=== PATIENT | female | born 1955 | race Caucasian/White ===

== ENCOUNTER 2018-08-27 11:48 | Emergency (ER) | payer BC ==
--- OUTSIDE RECORDS SUMMARY | 2018-08-27 12:04 | XMS REPORT | Continuity of Care Document ---
:1955 External Reference #:[id number] Author Name Fenrando Veras MD Address [address] [place] [address] Care Team Providers Name Role Phone Valente Sims Care Team Information Transfer Agent Unavailable Valente Sims Primary Care Physician Unavailable Payers Type Date Identification Numbers Payment Provider Subscriber Effective: Policy Number: [id number] ANALIA Avina Tita Bridges Maria Eugenia 2017 PayID: [id number] [address] [address] [place] [address] Advance Directives Description No Information Available Problems Date Description Provider Status Onset: 01/25/2018 Uncomplicated moderate persistent Fernando Veras MD Active asthma Onset: 01/25/2018 Allergic rhinitis Fernando Veras MD Active Onset: 01/25/2018 Allergic rhinitis due to pollen Fernando Veras MD Active Family History Date Family Member(s) Problem(s) Comments General No Current Problems Social History Type Date Description Comments Sex Unknown Home Environment Has a window air conditioner Home Environment Unfinished Basement Home Environment The basement is dry Home Environment There are draperies in the home Home Environment The floors are carpeted Home Environment The floors are tile Home Environment The floors are wood Home Environment Uses natural gas heating Smoke-Free Home is smoke-free Smoke-Free Work is smoke-free Pets None Tobacco Use Start: Unknown End: Unknown Patient is a former smoker 36 years Smoking Status Reviewed: 08/11/18 Patient is a former smoker 36 years Allergies, Adverse Reactions, Alerts Date Description Reaction Status Severity Comments 01/25/2018 Sulfa Antibiotics Active 01/25/2018 Augmentin Active Medications Medication Date Status Form Strength Qnty SIG Indications Ordering Provider Flonase 01/25 Active Suspension 50mcg/Act 9.900 2 puffs J30.1 Christopher Allergy /2017 ml each Silviano Veras MD Relief nostril bid Montelukast 01/25 Active Tablets 10mg 30tab take one J30.1 Christopher Sodium /2017 s tablet by Silviano Veras MD mouth daily in the evening Xyzal Allergy 01/25 Active Tablets 5mg 30tab take 1 J30.1 Christopher 24HR /2017 s tablet (5 Silviano Veras MD mg) by oral route once daily as needed Breo Ellipta 01/25 Active Aerosol 200-25mcg 1unit inhale one J30.1 Christopher /2018 /Inh s puff once a Silviano Veras MD day Proair HFA 01/25 Active Aerosol 108(90Bas 8.500 2 puffs J30.1 Misha e) gm every 4 Chuckie, RPA-C mcg/Act hours as needed Raloxifene Active Tablets 60mg 1 tab PO at Unknown HCL /0000 hs Vitamin D 00 Active Capsules 69298Dnwu take one Unknown (Ergocalcifer /0000 capsule by ol) mouth once weekly at hs Biotin 00 Active Capsules 5000mcg 1 cap PO at Unknown /0000 hs Aspirin Adult Active Tablets DR 81mg 1 by mouth Unknown Low Dose /0000 every day at hs Multi Vitamin 00/00 Active Tablets 1 tab PO at Unknown /0000 hs Calcium 0000 Active Tablets 600-200mg 1 tab PO Unknown /0000 -Unit daily at hs Montelukast Hx Tablets 10mg take one Unknown Sodium /0000 tablet by - mouth daily 01/25 at Ventolin HFA Hx Aerosol 108(90Bas inhale 2 Unknown /0000 e) puffs by - mcg/Act inhalation 01/25 route 4 hours as needed Immunizations Description No Information Available Vital Signs Date Vital Result Comment 08/11/2018 1:17pm BP Systolic 128 mmHg BP Diastolic 76 mmHg Height 64 inches 5'4" Weight 161.00 lb BMI (Body Mass Index) 27.6 kg/m2 Heart Rate 97 /min Respiratory Rate 18 /min Body Temperature 97.3 F 02/08/2018 2:01pm BP Systolic 112 mmHg BP Diastolic 74 mmHg Height 64 inches 5'4" Weight 161.00 lb BMI (Body Mass Index) 27.6 kg/m2 Heart Rate 68 /min Respiratory Rate 18 /min Body Temperature 97.7 F O2 % BldC Oximetry 96 % 01/25/2018 3:25pm BP Systolic 100 mmHg BP Diastolic 72 mmHg Height 64 inches 5'4" Weight 161.00 lb BMI (Body Mass Index) 27.6 kg/m2 Heart Rate 74 /min Respiratory Rate 16 /min O2 % BldC Oximetry 99 % Results Description No Information Available Procedures Date Code Description Status 08/11/2018 97673 Nitric Oxide Gas Determination Completed 08/11/2018 63195 Bronchodilation Responsiveness Spirometry Pre/Post Completed Bronchodil Adm 01/25/2018 30802 Nitric Oxide Gas Determination Completed 01/25/2018 48474 Allergy Tests Percutaneous W/ Allergenic Extracts Completed 01/25/2018 81220 Bronchodilation Responsiveness Spirometry Pre/Post Completed Bronchodil Adm Encounters Type Date Location Provider Dx Diagnosis Office Visit 08/11/2018 [place] Chuckie Cabral RPA-C J30.1 Allergic rhinitis due 1:00p to pollen J30.89 Other allergic rhinitis J45.40 Moderate persistent asthma, uncomplicated Office Visit 02/08/2018 2:00p LYNN Mejias J30.1 Allergic rhinitis due to pollen J30.89 Other allergic rhinitis J45.40 Moderate persistent asthma, uncomplicated Office Visit 01/25/2018 3:30p Yuliana Farr30.1 Allergic rhinitis MD due to pollen J30.89 Other allergic rhinitis J45.40 Moderate persistent asthma, uncomplicated Plan of Treatment Future Appointment(s):02/09/2019 8:30 am - [facility] at [facility]/20/2018 - Chuckie Cabral RPA-CJ30.1 Allergic rhinitis due to pollenComments:Continue all prescribed medications as directed. Pulmonary Function Test and Fractionated ExpiratoryNitrous Oxide test next appointment.Follow up:6 months, sooner as xqbircZ89.89 Other allergic jxzhxhhwR82.40 Moderate persistent asthma, uncomplicated
--- OUTSIDE RECORDS SUMMARY | 2018-08-27 12:04 | XMS REPORT | Continuity of Care Document ---
:1955 External Reference #:[id number] Author Name JacobGilmarna Care Team Providers Name Role Phone Valente Sims Care Team Information Digital Technician Unavailable Valente Sims Primary Care Physician Unavailable Payers Type Date Identification Numbers Payment Provider Subscriber Effective: Policy Number: [id number] BS [employer] Tita Del Cid 2017 PayID: [id number] [address] [address] [place] [address] Advance Directives Description No Information Available Problems [...] former smoker 36 years Smoking Status Reviewed: 02/08/18 Patient is a former smoker 36 years [...] s puff once a Silviano Veras MD Proair HFA 01/25 Active Aerosol 108(90Bas 8.500 2 puffs J30.1 oph e) gm every 4 as Silviano Veras MD mcg/Act needed Raloxifene Active Tablets 60mg 1 tab PO at Unknown HCL /0000 hs Vitamin D Active Capsules 10073Melo take one Unknown (Ergocalcifer /0000 capsule by ol) mouth once weekly at hs Biotin Active Capsules 5000mcg 1 cap PO at Unknown /0000 hs Aspirin Adult Active Tablets DR 81mg 1 by mouth Unknown Low Dose /0000 every day at hs Multi Vitamin 0000 Active Tablets 1 tab PO at Unknown /0000 hs Calcium 00 Active Tablets 600-200mg 1 tab PO Unknown [...] Information Available Procedures Date Code Description Status 01/25/2018 66809 Nitric Oxide Gas Determination Completed 01/25/2018 83114 Allergy Tests Percutaneous W/ Allergenic Extracts Completed 01/25/2018 39873 Bronchodilation Responsiveness Spirometry Pre/Post Completed Bronchodil Adm Encounters Type Date Location Provider Dx Diagnosis Office Visit 02/08/2018 2:00p LYNN Mejias J30.1 Allergic rhinitis due to pollen J30.89 Other allergic rhinitis J45.40 Moderate persistent asthma, uncomplicated Office Visit 01/25/2018 3:30p Yuliana Farr30.1 Allergic rhinitis MD due to pollen J30.89 Other allergic rhinitis J45.40 Moderate persistent asthma, uncomplicated Plan of Treatment 02/08/2018 - LYNN FairchildJ30.1 Allergic rhinitis due to xyuodcF49.89 Other allergic ticvimnmJ73.40 Moderate persistent asthma, uncomplicatedComments: Patient's PFT is within normal range and exhaled nitric oxide is 26 ppb. Patient tested 2+ to all 59 skin prick allergens. Patient to use Breo for prophylaxis of her lungs and Proair for breakthroughchest symptoms. Patient to use Flonase for prophylaxis of her nose and Xyzal for breakthrough nasalsymptoms. Patient to use Singulair as prescribed.Follow up:6 months, PFT and NIOX prior
[2018-08-27 12:53] VITALS: BP 123/82
--- NOTE | 2018-08-27 13:00 | UC ---
General HPI - HPI Summary HPI Summary: ILL X 3 WEEKS. BEGAN SINUS CONGESTION. NOW C/O LARYNGITIS, COUGH WITH CONGESTION AND WHEEZING PLUS SOME SOB. HX ASTHMA. - History of Current Complaint Chief Complaint: UCRespiratory Stated Complaint: COUGH,ST,TROUBLE BREATHING,HX OF ASTHMA Time Seen by Provider: 08/27/18 12:40 Hx Obtained From: Patient Onset/Duration: Gradual Onset Timing: Constant Pain Intensity: 0 Associated Signs & Symptoms: Negative: Fever - Allergy/Home Medications Allergies/Adverse Reactions: Allergies Allergy/AdvReac Type Severity Reaction Status Date / Time amoxicillin [From Augmentin] Allergy Unknown thrush, Verified 08/27/18 12:38 yeast infection clavulanic acid Allergy Unknown thrush, Verified 08/27/18 12:38 [From Augmentin] yeast infection Sulfa (Sulfonamide Allergy Unknown Unknown Verified 08/27/18 12:37 Antibiotics) Reaction Details enviromental Allergy Unknown Unknown Uncoded 08/27/18 12:37 Reaction Details Home Medications: Home Medications Albuterol HFA INHALER* [Ventolin HFA Inhaler*] 2 puff INH Q4H PRN 08/27/18 [ History Confirmed 08/27/18] Aspirin 81 mg CHEW TAB* [Aspirin Low Dose TAB*] 81 mg PO DAILY 08/27/18 [ History Confirmed 08/27/18] Biotin [Ultra Biotin] 5,000 mg PO DAILY 08/27/18 [History Confirmed 08/27/18] Brio Ellipta 1 inh INH DAILY 08/27/18 [History] Calcium Carbonate/Vitamin D3 [Calcium 600 + Vit D Tablet] 1 each PO DAILY [History Confirmed 08/27/18] Cholecalciferol TAB* [Vitamin D TAB*] 50,000 unit PO DAILY 08/27/18 [History Confirmed 08/27/18] Fluticasone NASAL SPRAY 50MCG* [Flonase NASAL SPRAY 50MCG*] 2 spray BOTH NARES DAILY 08/27/18 [History Confirmed 08/27/18] Levocetirizine Dihydrochloride [Xyzal Allergy 24Hr] 5 mg PO PRN 08/27/18 [ History] Montelukast Sodium TAB* [Singulair TAB*] 10 mg PO DAILY 08/27/18 [History Confirmed 08/27/18] Multivitamin [Multivitamins] 1 cap PO DAILY 08/27/18 [History Confirmed 08/27/18 ] Phenylephrine/Dm/Acetaminop/GG [Vicks Dayquil Severe Cold] 1 liq PO PRN [History] Raloxifene HCl [Evista] 60 mg PO DAILY 08/27/18 [History Confirmed 08/27/18] PMH/Surg Hx/FS Hx/Imm Hx - Additional Past Medical History Additional PMH: ALLERGIES Respiratory History: Asthma - Surgical History Surgical History: Yes Surgery Procedure, Year, and Place: TONSILLECTOMY. ANAL FISSURE REPAIR - Social History Alcohol Use: Occasionally Substance Use Type: None Smoking Status (MU): Former Smoker When Did the Patient Quit Smoking/Using Tobacco: 40 YEARS AGO - Immunization History Vaccination Up to Date: Yes Review of Systems All Other Systems Reviewed And Are Negative: Yes Constitutional: Positive: Negative Skin: Positive: Negative Eyes: Positive: Negative ENT: Positive: Negative Respiratory: Positive: Shortness Of Breath, Cough Cardiovascular: Positive: Negative Gastrointestinal: Positive: Negative Genitourinary: Positive: Negative Motor: Positive: Negative Neurovascular: Positive: Negative Musculoskeletal: Positive: Negative Neurological: Positive: Negative Psychological: Positive: Negative Physical Exam Triage Information Reviewed: Yes Appearance: Well-Appearing Vital Signs: Initial Vital Signs Temp 97.3 F 08/27/18 12:46 Pulse 93 08/27/18 12:46 Resp 15 08/27/18 12:46 BP 123/82 08/27/18 12:46 Pulse Ox 98 08/27/18 12:46 Vital Signs Reviewed: Yes Eyes: Positive: Conjunctiva Clear ENT: Positive: Pharynx normal, TMs normal, Hoarse voice, Uvula midline. Negative: Nasal congestion, Nasal drainage, Trismus, Muffled voice Neck: Positive: Supple, Nontender, No Lymphadenopathy Respiratory: Positive: No respiratory distress, Decreased breath sounds, Other: - Harsh cough. Cardiovascular: Positive: RRR, No Murmur Abdomen Description: Positive: Nontender, No Organomegaly, Soft Bowel Sounds: Positive: Present Musculoskeletal: Positive: ROM Intact Neurological: Positive: Alert Psychological: Positive: Age Appropriate Behavior Skin Exam: Normal Course/Dx - Course Course Of Treatment: t request diflucan, hx vaginbist(yeast) with antibiotic use. will tx for asthma flare and presumptive bacterial infection. - Diagnoses Provider Diagnosis: Laryngitis, Asthma Discharge - Sign-Out/Discharge Documenting (check all that apply): Patient Departure All imaging exams completed and their final reports reviewed: No Studies - Discharge Plan Condition: Stable Disposition: HOME Prescriptions: DOXYcycline CAP(*) [DOXYcycline 100MG CAP(*)] 100 mg PO BID 7 Days #14 cap Fluconazole 150 MG TAB* [Diflucan 150 MG TAB*] 150 mg PO ED ONCE #1 tablet predniSONE TAB* [Deltasone 20 MG TAB*] 40 mg PO DAILY 5 Days #10 tab Patient Education Materials: Asthma (DC), Laryngitis (ED) Referrals: Valente Sims MD [Primary Care Provider] - 7 Days Additional Instructions: USE ALBUTEROL INHALER 2 PUFFS EVERY 6 HOURS - Billing Disposition and Condition Condition: STABLE Disposition: Home - Attestation Statements Provider Attestation: I was available for consult. This patient was seen by the KP. The patient was not presented to, seen by, or examined by me. EK
== END 2018-08-27 13:05 | disposition home or self-care (01) ==
LOC: UCCORT 11:48
DX: J04.0 Acute laryngitis (principal); J45.909 Unspecified asthma, uncomplicated; Z88.0 Allergy status to penicillin; Z88.8 Allergy status to other drugs, medicaments and biological substances; Z88.2 Allergy status to sulfonamides; Z87.891 Personal history of nicotine dependence
CPT/HCPCS: 99202; G0463